=== PATIENT | female | born 1955 | race American Indian/Alaskan Native ===

== ENCOUNTER 2018-10-21 14:53 | Outpatient (CLI) | payer BC ==
--- NOTE | 2018-10-22 08:28 | Mammography Report ---
BILATERAL DIGITAL SCREENING MAMMOGRAM with CAD: 10/21/18 14:53:00 CLINICAL: Routine screening. COMPARISON:None. FINDINGS: The breasts are heterogeneously dense, which may obscure small masses. Left asymmetries require additional imaging.No architectural distortion or suspicious calcifications.The right breast is negative. IMPRESSION: Left asymmetries requiring further workup. BI-RADS CATEGORY: 0 -- Additional Imaging Evaluation Required RECOMMENDATION: Recall for left mediolateral , spot magnification CC and MLO views and left breast ultrasound. ACR BI-RADS MAMMOGRAPHIC CODES: 0 = Needs additional imaging evaluation; 1 = Negative; 2 = Benign; 3 = Probably benign; 4 = Suspicious; 5 = Malignant; 6 = Known biopsy-proven malignancy COMMENT: 1. Dense breast tissue, i.e., adenosis, fibrocystic changes, etc., may obscure an underlying neoplasm. 2. Approximately 10% of cancers are not detected with mammography. 3. A negative mammography report should not delay biopsy if a clinically suspicious mass is present. COMMENT: Patient follow-up letters are generated via our [employer] application.
== END 2018-10-21 14:54 | disposition home or self-care (01) ==
LOC: MAMMO 14:53
PROVIDERS: ATTEND Obstetrics & Gynecology
DX: Z12.31 Encounter for screening mammogram for malignant neoplasm of breast (principal)
CPT/HCPCS: 77067

== ENCOUNTER 2018-11-29 15:05 | Outpatient (CLI) | payer BC ==
--- NOTE | 2018-11-29 15:42 | Mammography Report ---
LEFT DIGITAL DIAGNOSTIC MAMMOGRAM : 11/29/18 15:05:00 CLINICAL: Recalled for asymmetries. COMPARISON:10/21/18 screening FINDINGS: Additional mammographic views were performed and are negative. IMPRESSION: Negative Mammogram. BI-RADS CATEGORY: 1 -- Negative RECOMMENDATION: Routine mammographic screening in one year. COMMENT: 1. Dense breast tissue, i.e., adenosis, fibrocystic changes, etc., may obscure an underlying neoplasm. 2. Approximately 10% of cancers are not detected with mammography. 3. A negative mammography report should not delay biopsy if a clinically suspicious mass is present. COMMENT: Patient follow-up letters are generated via our [employer] application.
== END 2018-11-29 15:06 | disposition home or self-care (01) ==
LOC: MAMMO 15:05
PROVIDERS: ATTEND Obstetrics & Gynecology
DX: R92.2 Inconclusive mammogram (principal)

== ENCOUNTER 2022-01-02 11:24 | Outpatient (CLI) | payer BC ==
--- NOTE | 2022-01-03 18:05 | Mammography Report ---
DIGITAL SCREENING MAMMOGRAM WITH CAD, 01/02/2022 CLINICAL INFORMATION / INDICATION: Routine screening mammography. TECHNIQUE: Digital bilateral 2D mammography was obtained in the craniocaudal and mediolateral obliqu e projections. This examination was interpreted with the benefit of Computer-Aided Detection analysis . COMPARISON: 10/21/2018 FINDINGS: Breast Density: There are scattered areas of fibroglandular density. Right breast: There is a new 3 mm focal asymmetry in the superior aspect of the right breast middle d epth. Left breast: No suspicious mass, microcalcifications or architectural distortion is identified. IMPRESSION: 1. New right breast asymmetry as described which will require additional evaluation with spot jerome arielle views and possible right breast ultrasound. Follow up recommendation: Special View: Spot Compression BI-RADS Category 0: INCOMPLETE. Needs additional imaging evaluation and/or prior mammograms for pernell rison. A "normal" or negative report should not discourage follow up or biopsy of a clinically significant f inding. A written summary of these findings will be mailed to the patient. The patient will be entered into a mammography reporting system which will generate a reminder letter for the patient's next appointmen t at the appropriate interval. The [employer] recommends yearly mammograms starting at age 40 and continuing as l letitia as a woman is in good health. Breast MRI is recommended for women with an approximate 20-25% or greater lifetime risk of breast cancer, including women with a strong family history of breast or ova lizbeth cancer or who have been treated for Hodgkin's disease. Signer Name: Hali Sherman MD Signed: 01/03/2022 6:00 PM Workstation Name: [id number]
== END 2022-01-02 11:25 | disposition home or self-care (01) ==
LOC: MAMMO 11:24
PROVIDERS: ATTEND Obstetrics & Gynecology
DX: Z12.31 Encounter for screening mammogram for malignant neoplasm of breast (principal); N64.89 Other specified disorders of breast
CPT/HCPCS: 77067

== ENCOUNTER 2022-01-26 12:46 | Outpatient (CLI) | payer MEDICARE ==
--- NOTE | 2022-01-26 13:52 | Mammography Report ---
DIGITAL DIAGNOSTIC MAMMOGRAM CONVENTIONAL, 01/26/2022 CLINICAL INFORMATION / INDICATION: Patient presents as a callback from screening mammogram for furthe r evaluation of the right breast asymmetry. TECHNIQUE: Digital right mammographic imaging was performed. Spot compression views were obtained. COMPARISON: Prior mammogram 01/02/2022 FINDINGS: Breast Density: There are scattered areas of fibroglandular density. The previously described asymmetry in the superior right breast does not persist on additional views, compatible with overlapping fibroglandular tissue. No suspicious mammographic abnormality identified . IMPRESSION: 1. The previously described density does not persist on additional views, compatible with overlapping fibroglandular tissue. No suspicious mammographic abnormality identified. Follow up recommendation: Routine yearly screening mammogram. BI-RADS Category 1: NEGATIVE. A "normal" or negative report should not discourage follow up or biopsy of a clinically significant f inding. A written summary of these findings will be mailed to the patient. The patient will be entered into a mammography reporting system which will generate a reminder letter for the patient's next appointmen t at the appropriate interval. According to the [employer], yearly mammograms are recommended starting at age 40 and continuing as long as a woman is in good health. Breast MRI is recommended for women with an malinda roximately 20-25% or greater lifetime risk of breast cancer, including women with a strong family his tory of breast or ovarian cancer and women who have been treated for Hodgkin's disease. Signer Name: Constanza Gaines MD Signed: 01/26/2022 1:48 PM Workstation Name: [email or web address]
== END 2022-01-26 12:47 | disposition home or self-care (01) ==
LOC: MAMMO 12:46
PROVIDERS: ATTEND Obstetrics & Gynecology
DX: R92.8 Other abnormal and inconclusive findings on diagnostic imaging of breast (principal); N64.89 Other specified disorders of breast